=== PATIENT | male | born 1990 ===

== ENCOUNTER 2021-12-31 17:52 | Emergency (ER) | payer SELFPAY ==
[2021-12-31 19:15] LABS: CORONAVIRUS COVID-19 NAA NEGATIVE (NEGATIVE); RESPIRATORY SYNCYTIAL VIR NAA NEGATIVE (NEGATIVE)
== END 2021-12-31 19:30 | disposition home or self-care (01) ==
LOC: LL.ED 17:52 → MERGE 17:52 → LL.ED 19:30
DX: Z20.822 Contact with and (suspected) exposure to COVID-19 (principal)
CPT/HCPCS: 0241U; 99282; 99283